=== PATIENT | male | born 1985 | race Caucasian/White ===

== ENCOUNTER 2021-04-04 11:47 | Emergency (ER) | payer BC, MEDICAID ==
[~2021-04-04] VITALS: Ht 172.7 cm; Wt 63.0 kg
[~2021-04-04 11:47] MED LIST: DULO30CA2 PO; FLUO10TA PO; LITH300C2 PO; QUET25TA PO; RISP2TAB5 PO
--- NOTE | 2021-04-04 12:03 | NUR ---
TO ER BED 11, [facility] FROM [facility], SENT TO BE EVALUATED FOR DVT, C/O BLE SWELLING X3DAYS, AAOX3, BREATHING EVEN AND NON LABORED, CONNECTED TO MONITOR, AWAITING MD ORDERS
[2021-04-04 12:42] LABS: BASOPHILS % (AUTO) 0.3 % (0.0-2.0); EOSINOPHILS % (AUTO) 0.8 % (0.0-6.0); HEMATOCRIT 22 % (39-51); HEMOGLOBIN 7.1 g/dL (13.5-17.5); LYMPHOCYTES # (AUTO) 0.5 K/uL (0.8-4.8); LYMPHOCYTES % (AUTO) 12.5 % (20.0-44.0); MEAN CORPUSCULAR HGB CONC 32 g/dl (31.0-36.0); MEAN CORPUSCULAR VOLUME 86 fL (80-96); MONOCYTES # (AUTO) 0.1 K/uL (0.1-1.30); MONOCYTES % (AUTO) 2.6 % (2.0-12.0); NEUTROPHILS # (AUTO) 3.2 K/uL (1.8-8.9); NEUTROPHILS % (AUTO) 83.8 % (43.0-81.0); PLATELET COUNT (AUTO) 482 K/uL (150-450); WHITE BLOOD COUNT (AUTO) 3.9 K/uL (4.3-11.0)
[2021-04-04 12:52] LABS: CALCIUM, SERUM 6.8 mg/dL (8.5-10.1); CARBON DIOXIDE 25 mmol/L (21-32); CHLORIDE 102 mmol/L (98-107); CREATININE 0.7 mg/dL (0.6-1.3); GLUCOSE 108 mg/dL (74-106); POTASSIUM 4.3 mmol/L (3.5-5.1); SODIUM SERUM 131 mmol/L (136-145); UREA NITROGEN, BLOOD 17 mg/dL (7-18)
[2021-04-04 13:06] LABS: ALANINE AMINOTRANSFERASE 19 U/L (12-78); ALKALINE PHOSPHATASE 151 U/L (46-116); ASPARTATE AMINOTRANSFERASE 14 U/L (15-37); BILIRUBIN,DIRECT 0.1 mg/dL (0.0-0.2); BILIRUBIN,TOTAL 0.1 mg/dL (0.2-1.0); TOTAL PROTEIN, SERUM 4.5 g/dL (6.4-8.2)
[2021-04-04 13:14] LABS: ALBUMIN 0.7 g/dL (3.4-5.0)
[2021-04-04] MEDS ORDERED: ALBUMIN 25% 100 ML IV ONE (13:24)
[2021-04-04] MEDS ORDERED: ALBUMIN 25% 12.5 GM/50 ML BOTTLE IV ONE (13:30)
--- NOTE | 2021-04-04 15:25 | NUR ---
COVID ANTIGEN SENT TO LAB
--- NOTE | 2021-04-04 16:40 | NUR ---
FAXED COVID RESULT TO [facility]
--- NOTE | 2021-04-04 18:02 | NUR ---
GOING TO [facility] RM [id number]. GIVE REPORT AMBULANCE [facility] ETA 9PM Addendum: 04/04/21 at 1924 by JUANY NUMBER TO GIVE REPORT [phone]
--- NOTE | 2021-04-04 19:30 | NUR ---
CALLED MULTIPLE TIMES TO GIVE REPORT BUT NOT ACCEPTING CALLS
--- NOTE | 2021-04-04 19:34 | NUR ---
SPOKE TO RAVIN, GIVE REPORT AT 8PM
--- NOTE | 2021-04-04 19:35 | NUR ---
NUMBER TO GIVE REPORT [phone] EXT [id number]
--- NOTE | 2021-04-04 20:07 | NUR ---
PT REFUSING TYPE AND SCREEN. AWARE
--- NOTE | 2021-04-04 20:18 | NUR ---
CALLED [facility], 5TH FLOOR HAS NO RECORD OF PT COMING IN AND PER 3RD FLOOR "WE ARE ALREADY OUT OF RATIO" WILL CALL [facility]
--- NOTE | 2021-04-04 20:27 | NUR ---
CALLED [facility], WILL CALL BACK TO CONFIRM PHONE NUMBER AND HOSPITAL FOR REPORT
--- NOTE | 2021-04-04 20:57 | NUR ---
SPOKE TO BOB AT [facility], SHE WILL MESSAGE TAMMIE TO CONFIRM HOSPITAL.
[2021-04-04 21:00] VITALS: BP 136/82
--- NOTE | 2021-04-04 21:03 | NUR ---
SPOKE TO TAMMIE, SHE CALLED ADMITTING AT [facility] WHO WILL CALL [facility] TO FIND OUT WHY NO ONE CAN TAKE REPORT ON PT
--- NOTE | 2021-04-04 21:29 | NUR ---
TRANSFER INFO: PT GOING TO ROOM 521, RN FOR REPORT [phone] EXT. #[phone], BRANDY CAN CONNECT VIA PHONE IF NEEDED
--- NOTE | 2021-04-04 21:41 | NUR ---
gave report to alyse nichols for [facility]
--- NOTE | 2021-04-04 21:42 | NUR ---
GAVE REPORT TO EMS
--- NOTE | 2021-04-04 21:46 | NUR ---
PT CONCERNED ABOUT BELONIGNINGS LEFT AT [facility]. CALLED AND SPOKE WITH BROOKLYNN. PER BROOKLYNN, BELONGINGS WILL BE KEPT
== END 2021-04-04 21:46 | disposition short-term general hospital (02) ==
LOC: ER 11:53
DX: R60.0 Localized edema (principal); D64.9 Anemia, unspecified; E88.09 Other disorders of plasma-protein metabolism, not elsewhere classified; Z20.822 Contact with and (suspected) exposure to COVID-19; Z91.041 Radiographic dye allergy status; Z91.018 Allergy to other foods; F31.9 Bipolar disorder, unspecified; Z79.899 Other long term (current) drug therapy; L97.819 Non-pressure chronic ulcer of other part of right lower leg with unspecified severity; R00.0 Tachycardia, unspecified; J98.11 Atelectasis
CPT/HCPCS: 36415; 71045-TC; 80048-TC; 80076-TC; 83880; 84484-TC; 85025-TC; 85730-TC; 86850-TC; 93970-TC; C9803; P9047; U0003